=== PATIENT | female | born 1965 | race Hispanic/Latino ===

== ENCOUNTER 2017-05-20 13:16 | Inpatient (IN) | payer MEDICAID ==
[2017-05-16 09:18] VITALS: BMI 31.8
--- NOTE | 2017-05-20 13:56 | CP.SDSHP ---
Same Day Surgery H & P - History Proposed Procedure: Reverdin Bunionectomy, Tailor's Bunionectomy, HT 2, and 5 repair Pre-Op Diagnosis: HAV, Hammer 2 and 5, Tailor's bunion of the right foot - Allergies Allergies: Allergies azithromycin [From Zithromax Z-Ty] Allergy (Verified 10/08/16 08:51) RASH Penicillins Allergy (Verified 10/08/16 08:51) RASH - Physical Exam Mental Status: Alert & Oriented x3 Neuro: WNL Heart: WNL Lungs: WNL - {Optional Preform as Required} Ortho: Other - Impression Impression: Pt was seen and examined in SDS. Pt NPO status was confirmed. All Pre-op testing and clearance was in the chart. Pt has exhausted all conservative treatment at this time and is opting for surgical intervention. Pt was explained procedure and post-operative course. All pt's questions were answered to satisfaction. No guarantees were made. Pt understands all risks, benefits and complications of procedure. Pt will follow-up with Dr. Gallo - Date & Time Date: 05/20/17 Time: 13:57 Short Stay Discharge - Short Stay Discharge Admitting Diagnosis/Reason for Visit: M20.10 M20.41 M21.621 Disposition: TRANS TO OBS Referrals: FAMILY PROVIDER,NO [Primary Care Provider] - Additional Instructions (Diet, Activity): Patient in good/stable condition for discharge home. Pt to resume medications per medical reconciliation. Resume regular diet. Please keep dressing clean, dry, & intact to surgical site, use plastic bag over bandage for showering, wear post op shoe at all times when ambulating, call clinic if you see signs of infection (redness, swelling, malodor), please make an appointment to see Dr. Gallo in office/clinic within 1 week for post-op check. Progress Note/Discharge Note with Instructions: - Patient evaluated bedside in recovery s/p surgical procedure. - After surgical procedure patient in NAD - (+) Void, (+) Appetite - Capillary refill time <3s and NVSI intact. - Patient denies complaints at this time - Post operative instructions and plan of care explained to patient at length. - Pt. acknowledges understanding. - Patient stable for DC per podiatric surgery
--- NOTE | 2017-05-20 14:03 | CP.PCM.PN ---
Subjective - Date & Time of Evaluation Date of Evaluation: 05/20/17 Time of Evaluation: 13:57 - Subjective Subjective: 51 y/o female seen at bedside in [facility] with her for right foot surgery. Patient states that she had surgery on that foot couple of years ago but did not correct the issue. Patient states that she was in a lot of pain after the surgery. Patient states that her foot is not the same after that surgery and she still feels tingling and burning in that foot. Patient states that she has been NPO since midnight. Patient states that she feel nauseous from anesthesia but does not have any other adverse reaction. Patient denies of any other pedal complains at this time. PMHx: Hyperthyroidism PSHx: Right foot surgery, Hysterectomy, Breast augmentations Allergies: Azithromycin, Penicillins SHx: Admits of smoking, occasional EtOH, denies of any other illicit drug usage Objective - Vital Signs/Intake and Output Vital Signs (last 24 hours): Temp Pulse Resp BP Pulse Ox 97.4 F L 70 18 124/82 05/16/17 09:33 05/16/17 09:33 05/16/17 09:33 05/16/17 09:33 - Constitutional Appears: Well, Non-toxic, No Acute Distress - Extremities Exam Additional comments: Right LE focused exam: VASC: DP/PT pulses are palpable 2/4, Cap Refill time: < 3 sec to all digits, Temp gradient: warm to cool from proximal to distal, minimal non-pitting edema noted at the digits DERM: Surgical scar noted on the dorsum of the 1st ray from previous surgery, no open lesions, no erythema, no clinical suspicion of active infection NEURO: Protective sensation grossly intact ORTHO: minimal hallux abductovalgus noted on right foot with digits 2-4 hammer toes, 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 for 1). Hallux abductovalgus 2). Hammertoes 2-5 3). 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 Pt NPO status was confirmed All Pre-op testing and clearance was in the chart Pt has exhausted all conservative treatment at this time and is opting for surgical intervention Pt was explained procedure and post-operative course All pt's questions were answered to satisfaction No guarantees were made Pt understands all risks, benefits and complications of procedure Pt will follow-up with Dr. Gallo
[2017-05-20] MEDS ORDERED: Bupivacaine 0.5% Inj(30mL) IJ ONE ×3 (14:12→20:10)
[2017-05-20] MEDS ORDERED: Clindamycin 600 MG in Sodium Chloride 0.9% 100 ML IVPB ONE (14:12)
[2017-05-20] MEDS ORDERED: Lidocaine 1% Inj (20ml) IJ ONE ×3 (14:12→20:10)
[2017-05-20] MEDS ORDERED: Bupivacaine 0.5% Inj(30mL) ONE (15:06)
[2017-05-20] MEDS ORDERED: Lidocaine 1% Inj (20ml) ONE (15:06)
[2017-05-20] MEDS ORDERED: Midazolam 2 MG/2 ML VIAL ONE (15:26)
[2017-05-20] MEDS ORDERED: Propofol 10 mg/ml Inj (20 ML) ONE (15:26)
[2017-05-20] MEDS ORDERED: Dexamethasone 4 mg/1 ml ONE (16:14)
[2017-05-20] MEDS ORDERED: HYDROmorphone 0.5 mg/0.5 ml ISec IVP PRN (20:30)
[2017-05-20] MEDS ORDERED: Oxycodone/Acetaminophen 5/325 mg Tab PO PRN (20:33)
[2017-05-20] MEDS ORDERED: HYDROmorphone 0.5 mg/0.5 ml ISec ONE ×3 (20:35→21:07)
[2017-05-20] MEDS ORDERED: HYDROmorphone 0.5 mg/0.5 ml ISec IVP ONE ×3 (20:35→21:07)
--- NOTE | 2017-05-20 20:51 | PCM.SURG1 ---
Surgeon's Initial Post Op Note - Surgeon's Notes Surgeon: Dr. Gallo DPM Laboratory Operations Coordinator: Dr. Jaky Obrien PGY-2, Dr. Eleni Howard PGY-1 Type of Anesthesia: General LMA Anesthesia Administered By: Dr. Whitehead Pre-Operative Diagnosis: Right foot bunion, Hammer toe 2nd and 5th, abductovarus of the 5th digit, splaying of the 5th ray Operative Findings: See dictation. M: Arthrex T-plate 4 hole, 4.0 mm cancelous 24 mm, 3.0 cortical 14mm x 2, 3.0 cortical 20mm x 2, 4.0 cancellous 30 mm, Inbone 2 hole VLC gridlock plate, 2.4 x 12 mm NL screw x 2, DBM bone putty. I: 25 cc of 1:1 mixture of 1% lidocain plain: 0.5% Marcain plain Post-Operative Diagnosis: Same Operation Performed: Lapidus bunionectomy and Elvis osteotomy with screws and plate fixation, Hammertoe correction of 2nd and 5th digit of the right foot Specimen/Specimens Removed: none Estimated Blood Loss: EBL {In ML}: 100 Blood Products Given: N/A Drains Used: No Drains Post-Op Condition: Good Date of Surgery/Procedure: 05/20/17 Time of Surgery/Procedure: 20:30
--- NOTE | 2017-05-20 21:08 | CP.PCM.HP ---
History of Present Illness - History of Present Illness History of Present Illness: 51 y/o female with pmhx significant for hypothyroidism and asthma being admitted s/p Lapidus bunionectomy and Elvis osteotomy with screws and plate fixation, Hammertoe correction of 2nd and 5th digit of the right foot. Pt seen and examined while recovery at "[facility]"; did not have any complaints, pain was very well controlled. PMHx: Hypothyroidism PSHx: Right foot surgery, Hysterectomy, Breast augmentations Allergies: Azithromycin, Penicillins SHx: Admits of smoking, occasional EtOH, denies of any other illicit drug usage Present on Admission - Present on Admission Any Indicators Present on Admission: No Review of Systems - Review of Systems Review of Systems: Unable to obtain full ROS given pt sedated condition due to pain management Past Patient History - Infectious Disease Hx of Infectious Diseases: None - Past Medical History & Family History Past Medical History?: Yes - Past Social History Smoking Status: Current Some Days Smoker - CARDIAC Hx Cardiac Disorders: Yes Hx Hypercholesterolemia: Yes - PULMONARY Hx Respiratory Disorders: No Hx Asthma: Yes - NEUROLOGICAL Hx Neurological Disorder: No - HEENT Hx HEENT Problems: No - RENAL Hx Chronic Kidney Disease: No - ENDOCRINE/METABOLIC Hx Endocrine Disorders: Yes Hx Hypothyroidism: Yes - HEMATOLOGICAL/ONCOLOGICAL Hx Blood Disorders: No - INTEGUMENTARY Hx Dermatological Problems: No - MUSCULOSKELETAL/RHEUMATOLOGICAL Hx Musculoskeletal Disorders: No Hx Falls: No - GASTROINTESTINAL Hx Gastrointestinal Disorders: Yes Hx Gastroesophageal Reflux: Yes Other/Comment: HEARTBURN - GENITOURINARY/GYNECOLOGICAL Hx Genitourinary Disorders: No (BREAST AUGMENTATION,FIBROIDS) - PSYCHIATRIC Hx Psychophysiologic Disorder: Yes Hx Anxiety: Yes Hx Depression: No Hx Emotional Abuse: No Hx Physical Abuse: No Hx Substance Use: No - SURGICAL HISTORY Hx Surgeries: Yes (BREAST AUGMENTATION,BUNIONECTOMY) Hx Hysterectomy: Yes Hx Musculoskeletal Surgery: Yes (BUNIONECTOMY RIGHT OCT 2016) Hx Orthopedic Surgery: Yes (Right foot) Other/Comment: BREAST AUGMENTATION 16 YRS AGO - ANESTHESIA Hx Anesthesia: Yes Hx Anesthesia Reactions: No Hx Malignant Hyperthermia: No Has any member of the family had a problem w/ anesthesia?: No Meds Allergies/Adverse Reactions: Allergies Allergy/AdvReac Type Severity Reaction Status Date / Time azithromycin Allergy RASH Verified 10/08/16 08:51 [From Zithromax Z-Ty] Penicillins Allergy RASH Verified 10/08/16 08:51 Physical Exam - Constitutional Appears: Non-toxic, No Acute Distress, Other Additional comments: sedated - Head Exam Head Exam: NORMOCEPHALIC - Eye Exam Eye Exam: Normal appearance - ENT Exam ENT Exam: Mucous Membranes Moist - Respiratory Exam Respiratory Exam: Clear to Auscultation Bilateral, NORMAL BREATHING PATTERN. absent: Wheezes - Cardiovascular Exam Cardiovascular Exam: REGULAR RHYTHM, +S1, +S2 - GI/Abdominal Exam GI & Abdominal Exam: Normal Bowel Sounds, Soft. absent: Tenderness - Extremities Exam Additional comments: right lower extremity is neatly wrapped left LE: no calf tenderness, no edema - Neurological Exam Neurological exam: Oriented x3 Additional comments: easily aroused Results - Vital Signs Recent Vital Signs: Last Vital Signs Temp 99.2 F 05/20/17 20:45 Pulse 81 05/20/17 20:45 Resp 14 05/20/17 20:45 BP 146/94 H 05/20/17 20:45 Pulse Ox 98 05/20/17 20:45 Assessment & Plan - Assessment and Plan (Free Text) Assessment: 51 y/o female with history of hypothyroidism and asthma being admitted for observation s/p Lapidus bunionectomy and Elvis osteotomy with screws and plate fixation, Hammertoe correction of 2nd and 5th digit of the right foot POD#0 Plan: 1.Lapidus bunionectomy and Elvis osteotomy with screws and plate fixation, Hammertoe correction of 2nd and 5th digit of the right foot -clindamycin per surgeon -pain management per podiatry -PT eval ordered per podiatry -scd -incentive spirometry monitor for pain 2. Hypothyroidism -Pt has been off her Synthroid for 2 weeks,; will hold medication -pt to see her PCP about restarting medication 3. Asthma (moderate persistent) - Pt home medication ordered, not on formulary - Advair for overnight and AM -pt to resume home medication after discharge 4. Diet-regular 5. DVT prophylaxis- SCDs
[2017-05-20] MEDS: Clindamycin 600 MG in Sodium Chloride 0.9% 100 ML IVPB SCH (22:00)
[2017-05-21] MEDS: Oxycodone/Acetaminophen 5/325 mg Tab PO PRN ×3 (01:09→19:49)
[2017-05-21 05:47] LABS: HEMATOCRIT 36.3 % (34.0-47.0); MEAN CELL VOLUME 101.1 fl (81.0-99.0); MEAN CORPUSCULAR HEMOGLOBIN 33.8 pg (27.0-31.0); MEAN CORPUSCULAR HGB CONC 33.4 g/dL (33.0-37.0); RED CELL DISTRIBUTION WIDTH 13.4 % (11.5-14.5); WHITE BLOOD COUNT 9.6 K/uL (4.8-10.8)
[2017-05-21] MEDS: Fluticasone-Salmeterol 100-50mcg Diskus IH SCH ×2 (08:27→20:07)
[2017-05-21] MEDS: Clindamycin 600 MG in Sodium Chloride 0.9% 100 ML IVPB SCH ×2 (08:28→20:05)
[2017-05-21] MEDS: Sodium Chloride 0.9% 1,000 ML IV SCH ×2 (08:32→12:53)
--- NOTE | 2017-05-21 08:33 | CP.PCM.PN ---
Subjective - Date & Time of Evaluation Date of Evaluation: 05/21/17 Time of Evaluation: 07:00 - Subjective Subjective: Patient seen and examined in [facility] unit this morning. Patient c/o pain and electric shock sensation in his right lower extremity. Afebrile, but BP has been elevated most likely secondary to pain Objective - Vital Signs/Intake and Output Vital Signs (last 24 hours): Temp Pulse Resp BP Pulse Ox 98.9 F 80 20 126/75 98 05/21/17 07:50 05/21/17 07:50 05/21/17 07:50 05/21/17 07:50 05/21/17 07:50 Intake and Output: 05/21/17 05/21/17 06:59 18:59 Output Total 400 Balance -400 - Medications Medications: Current Medications Acetaminophen (Tylenol 325mg Tab) 650 mg PO Q4 PRN PRN Reason: Pain, Mild (1-3) Home Med (Fluticasone/Salmeterol [Fluticasone-Salmeterol 113-14]) 113 mcg PO DAILY [facility] Hydromorphone HCl (Dilaudid) 0.5 mg IVP Q5MIN PRN PRN Reason: Pain, severe (8-10) Sodium Chloride (Sodium Chloride 0.9%) 1,000 mls @ 140 mls/hr IV .Q7H9M [facility] Stop: 05/21/17 14:14 Last Admin: 05/21/17 08:32 Dose: 140 mls/hr Clindamycin Phosphate 600 mg/ (Sodium Chloride) 104 mls @ 104 mls/hr IVPB Q12 [facility] Last Admin: 05/21/17 08:28 Dose: 104 mls/hr Ondansetron HCl (Zofran Inj) 4 mg IVP Q4 PRN PRN Reason: Nausea/Vomiting Last Admin: 05/21/17 06:32 Dose: 4 mg Oxycodone/Acetaminophen (Percocet 5/325 Mg Tab) 1 tab PO Q4 PRN PRN Reason: Pain, moderate (4-7) Stop: 05/23/17 20:34 Oxycodone/Acetaminophen (Percocet 5/325 Mg Tab) 2 tab PO Q6 PRN PRN Reason: Pain, severe (8-10) Stop: 05/23/17 20:34 Last Admin: 05/21/17 01:09 Dose: 2 tab Fluticasone/Salmeterol (Advair Diskus 100/50) 1 puff IH Q12 [facility] Last Admin: 05/21/17 08:27 Dose: 1 puff - Labs Labs: 05/21/17 05:33 - ENT Exam ENT Exam: Mucous Membranes Moist - Respiratory Exam Respiratory Exam: Clear to Ausculation Bilateral, NORMAL BREATHING PATTERN - Cardiovascular Exam Cardiovascular Exam: REGULAR RHYTHM, +S1, +S2 - GI/Abdominal Exam GI & Abdominal Exam: Soft, Normal Bowel Sounds. absent: Distended, Guarding, Rigid - Extremities Exam Extremities Exam: absent: Calf Tenderness, Pedal Edema Additional comments: Patient's posterior splint is clean, dry and intact. Patient is able to move her digits in the splint with no discomfort or pain Cap refill time is < 3 sec to all digits - Neurological Exam Neurological Exam: Alert, Awake, Oriented x3 - Skin Skin Exam: Dry, Intact, Normal Color Assessment and Plan - Assessment and Plan (Free Text) Assessment: 51 y/o female with PMHx of hypothyroidism, now s/p Lapidus bunionectomy, Elvis, 2nd and 5th hammertoe correction of the right foot on POD#1. Plan: S/p Lapidus bunionectomy and Elvis osteotomy with screws and plate fixation, Hammertoe correction of 2nd and 5th digit of the right foot POD #1 Pain control: Morhine 2 mg IVP Q4 PRN for severe pain (8-10) Percocet 1 tab PO Q4 for moderate pain (5-7) Tylenol 650 mg Q4 PRN (1-3) PT/ OT eval Zofran 4 mg IV Q4 PRN start Gabapentin 100 mg PO TID c/w Clindamycin 600 mg IV Q12 as per surgeon c/w Incentive spirometry monitor for pain H/O Hypothyroidism asymptomatic at this time -Pt has been off her Synthroid for 2 weeks -TSH : 0.33, low, Free T4: 0.75 -pt to see her PCP about restarting medication Asthma possible mild persistent - Pt home medication ordered, not on formulary - c/w Advair Diskus 1 puff Q12 while in hospital, after DC she can resume her home med -Albuterol inh Q4 PRN for wheezing DVT prophylaxis- SCDs for now Consider Lovenox 40 SC , start 12 hours after surgery
[2017-05-21] MEDS ORDERED: FLUTICASONE PO SCH (09:00)
[2017-05-21] MEDS ORDERED: SALMETEROL PO SCH (09:00)
[2017-05-21] MEDS ORDERED: Albuterol 0.083% Inhal Sol (2.5 mg/3 mL) UD INH PRN (09:16)
[2017-05-21] MEDS ORDERED: diaZEpam 10 mg/2 ml Inj IVP ONE (10:03)
--- NOTE | 2017-05-21 10:53 | CP.PCM.PN ---
Subjective - Date & Time of Evaluation Date of Evaluation: 05/21/17 Time of Evaluation: 10:50 - Subjective Subjective: 51 y/o female seen at bedside 1 day s/p Lapidus bunionectomy, Elvis, 2nd and 5th hammertoe correction of the right foot. Patient is AAOx3. Patient states that she was unable to sleep overnight because of the pain. Patient states that she feels an electrical pain shooting up her thigh on the right side. Patient denies of any other pedal complains at this time. Patients dressing is clean, dry and intact. Patient denies of any F/N/V/C/SOB/CP today. Objective - Vital Signs/Intake and Output Vital Signs (last 24 hours): Temp Pulse Resp BP Pulse Ox 98.9 F 80 20 126/75 98 05/21/17 07:50 05/21/17 07:50 05/21/17 07:50 05/21/17 07:50 05/21/17 07:50 Intake and Output: 05/21/17 05/21/17 06:59 18:59 Output Total 400 Balance -400 - Medications Medications: Current Medications Acetaminophen (Tylenol 325mg Tab) 650 mg PO Q4 PRN PRN Reason: Pain, Mild (1-3) Albuterol Sulfate (Albuterol 0.083% Inhal Caroline (2.5 Mg/3 Ml) Ud) 2.5 mg INH RQ4 PRN PRN Reason: Shortness of Breath Home Med (Fluticasone/Salmeterol [Fluticasone-Salmeterol 113-14]) 113 mcg PO DAILY [facility] Sodium Chloride (Sodium Chloride 0.9%) 1,000 mls @ 140 mls/hr IV .Q7H9M [facility] Stop: 05/21/17 14:14 Last Admin: 05/21/17 08:32 Dose: 140 mls/hr Clindamycin Phosphate 600 mg/ (Sodium Chloride) 104 mls @ 104 mls/hr IVPB Q12 [facility] Last Admin: 05/21/17 08:28 Dose: 104 mls/hr Morphine Sulfate (Morphine) 2 mg IVP Q4 PRN PRN Reason: Pain, severe (8-10) Ondansetron HCl (Zofran Inj) 4 mg IVP Q4 PRN PRN Reason: Nausea/Vomiting Last Admin: 05/21/17 06:32 Dose: 4 mg Oxycodone/Acetaminophen (Percocet 5/325 Mg Tab) 1 tab PO Q4 PRN PRN Reason: Pain, moderate (4-7) Stop: 05/23/17 20:34 Fluticasone/Salmeterol (Advair Diskus 100/50) 1 puff IH Q12 [facility] Last Admin: 05/21/17 08:27 Dose: 1 puff - Labs Labs: 05/21/17 05:33 - Constitutional Appears: Well, Non-toxic, No Acute Distress - Extremities Exam Additional comments: Patient's posterior splint is clean, dry and intact. Patient is able to move her digits in the splint with no discomfort or pain Cap refill time is < 3 sec to all digits - Neurological Exam Neurological Exam: Alert, Awake, Oriented x3 - Psychiatric Exam Psychiatric exam: Normal Affect, Normal Mood Assessment and Plan - Assessment and Plan (Free Text) Assessment: 51 y/o female seen at bedside 1 day s/p Lapidus bunionectomy, Elvis, 2nd and 5th hammertoe correction of the right foot. Plan: Patient seen and evaluated at bedside Patient discussed with attending Dr. Gallo Patient is staying for overnight for observation and pain management Post-op x-rays ordered/reviewed Will change patient's posterior splint to a hard cast prior to her discharge tomorrow Patient will follow up with Dr. Gallo as an outpatient Patient demonstrated verbal understanding Podiatry to follow patient closely while in-house
--- NOTE | 2017-05-21 14:30 | RAD ---
PROCEDURE: Right Foot Radiographs. HISTORY: s/p right foot surgery COMPARISON: 05/20/2017. FINDINGS: BONES: Stable appearance of orthopedic hardware 1st cuneiform -1st metatarsal and proximal phalanx 1st digit. No evidence of orthopedic hardware failure. JOINTS: No significant interval change compared to the prior examination(s). SOFT TISSUES: Persistent soft tissue swelling. OTHER FINDINGS: None. IMPRESSION: Satisfactory postoperative status. Soft tissue swelling without acute articular or osseous abnormality.
[2017-05-21] MEDS ORDERED: Oxycodone/Acetaminophen 5/325 mg Tab PO PRN (15:28)
--- NOTE | 2017-05-21 16:28 | RAD ---
PROCEDURE: Right foot dated 05/21/2017 HISTORY: Right foot surgery. COMPARISON: Comparison made with prior study 05/20/2017 at 2023 hours. FINDINGS: BONES: Re- demonstrated are postoperative changes involving proximal 1st metatarsal and proximal phalanx 1st toe. Hardware intact. No evidence of loosening or infection. Note however that surrounding fiberglass cast obscures fine soft tissue and bone detail. Diffuse circumferential soft tissue swelling. Postoperative changes distal aspect proximal phalanx 2nd toe unchanged. . IMPRESSION: Stable postoperative changes as described. Diffuse circumferential soft tissue swelling
[2017-05-22 00:22] VITALS: RESP 20; TEMP 99.4; O2SAT 96
[2017-05-22] MEDS: Oxycodone/Acetaminophen 5/325 mg Tab PO PRN ×2 (02:04→06:52)
[2017-05-22 06:08] LABS: HEMATOCRIT 33.1 % (34.0-47.0); MEAN CELL VOLUME 101.6 fl (81.0-99.0); MEAN CORPUSCULAR HEMOGLOBIN 33.9 pg (27.0-31.0); MEAN CORPUSCULAR HGB CONC 33.4 g/dL (33.0-37.0); RED CELL DISTRIBUTION WIDTH 13.3 % (11.5-14.5); WHITE BLOOD COUNT 6.2 K/uL (4.8-10.8)
[2017-05-22 06:29] LABS: BLOOD UREA NITROGEN 8 mg/dl (7-17); CALCIUM 8.1 mg/dL (8.4-10.2); CARBON DIOXIDE 26 mmol/L (22-30); CHLORIDE 106 mmol/L (98-107); GFR AFRICAN-AMERICAN > 60; GLUCOSE,RANDOM 105 mg/dL (65-105); POTASSIUM 3.6 MMOL/L (3.6-5.0); SODIUM 138 mmol/l (132-148)
--- NOTE | 2017-05-22 06:44 | CP.PCM.PN ---
Subjective - Date & Time of Evaluation Date of Evaluation: 05/22/17 Time of Evaluation: 07:26 - Subjective Subjective: 51 y/o female seen at bedside 2 day s/p Lapidus bunionectomy, Elvis, 2nd and 5th hammertoe correction of the right foot. Patient is AAOx3 and is in NAD. Patient states that her pain is now well managed and states that was able to sleep last night. Patient denies of any acute overnight events. Patient denies of any F/N/V /C/SOB/CP today. Patient denies of any other pedal complains today. Patient states that she is aware that she will be going home today. Objective - Vital Signs/Intake and Output Vital Signs (last 24 hours): Temp Pulse Resp BP Pulse Ox 99.4 F 91 H 20 122/78 96 05/22/17 00:21 05/22/17 00:21 05/22/17 00:21 05/22/17 00:21 05/22/17 00:21 - Medications Medications: Current Medications Acetaminophen (Tylenol 325mg Tab) 650 mg PO Q4 PRN PRN Reason: Pain, Mild (1-3) Albuterol Sulfate (Albuterol 0.083% Inhal Caroline (2.5 Mg/3 Ml) Ud) 2.5 mg INH RQ4 PRN PRN Reason: Shortness of Breath Cyclobenzaprine HCl (Flexeril) 5 mg PO TID PRN PRN Reason: Muscle spasm Last Admin: 05/21/17 19:50 Dose: 5 mg Gabapentin (Neurontin) 100 mg PO TID [facility] Last Admin: 05/21/17 16:19 Dose: 100 mg Clindamycin Phosphate 600 mg/ (Sodium Chloride) 104 mls @ 104 mls/hr IVPB Q12 [facility] Last Admin: 05/21/17 20:05 Dose: 104 mls/hr Morphine Sulfate (Morphine) 4 mg IVP Q4 PRN PRN Reason: Pain, severe (8-10) Last Admin: 05/22/17 03:58 Dose: 4 mg Ondansetron HCl (Zofran Inj) 4 mg IVP Q4 PRN PRN Reason: Nausea/Vomiting Last Admin: 05/21/17 22:56 Dose: 4 mg Oxycodone/Acetaminophen (Percocet 5/325 Mg Tab) 1 tab PO Q4 PRN PRN Reason: Pain, moderate (4-7) Stop: 05/23/17 20:34 Last Admin: 05/22/17 02:04 Dose: 1 tab Fluticasone/Salmeterol (Advair Diskus 100/50) 1 puff IH Q12 [facility] Last Admin: 05/21/17 20:07 Dose: 1 puff - Labs Labs: 05/22/17 05:00 05/22/17 05:00 - Constitutional Appears: Well, Non-toxic, No Acute Distress - Extremities Exam Additional comments: Patient's posterior splint is clean, dry and intact. Patient is able to move her digits in the splint with no discomfort or pain Cap refill time is < 3 sec to all digits - Neurological Exam Neurological Exam: Alert, Awake, Oriented x3 - Psychiatric Exam Psychiatric exam: Normal Affect, Normal Mood Assessment and Plan - Assessment and Plan (Free Text) Assessment: 51 y/o female seen at bedside 2 days s/p Lapidus bunionectomy, Elvis, 2nd and 5th hammertoe correction of the right foot. Plan: Patient seen and evaluated at bedside Patient discussed with attending Dr. Gallo Post-op x-rays ordered/reviewed Patient is tolerating her pain well today and is stable from podiatry standpoint Will change patient's posterior splint to a hard cast prior to her discharge tomorrow Patient will follow up with Dr. Gallo as an outpatient Patient demonstrated verbal understanding Podiatry to follow patient closely while in-house
[2017-05-22 08:10] VITALS: BP 106/63; PULSE 80
[2017-05-22] MEDS: Clindamycin 600 MG in Sodium Chloride 0.9% 100 ML IVPB SCH (08:42)
[2017-05-22] MEDS: Fluticasone-Salmeterol 100-50mcg Diskus IH SCH (08:43)
--- NOTE | 2017-05-22 09:52 | CP.PCM.DIS ---
Provider - Provider Date of Admission: 05/21/17 11:00 Attending physician: Jennifer Saenz MD Hospital Course - Lab Results Lab Results: Most Recent Lab Values WBC 6.2 K/uL (4.8-10.8) 05/22/17 05:00 RBC 3.26 Mil/uL (3.80-5.20) L 05/22/17 05:00 Hgb 11.1 g/dL (12.0-16.0) L 05/22/17 05:00 Hct 33.1 % (34.0-47.0) L 05/22/17 05:00 MCV 101.6 fl (81.0-99.0) H 05/22/17 05:00 MCH 33.9 pg (27.0-31.0) H 05/22/17 05:00 MCHC 33.4 g/dL (33.0-37.0) 05/22/17 05:00 RDW 13.3 % (11.5-14.5) 05/22/17 05:00 Plt Count 144 K/uL (130-400) 05/22/17 05:00 Sodium 138 mmol/l (132-148) 05/22/17 05:00 Potassium 3.6 MMOL/L (3.6-5.0) 05/22/17 05:00 Chloride 106 mmol/L (98-107) 05/22/17 05:00 Carbon Dioxide 26 mmol/L (22-30) 05/22/17 05:00 Anion Gap 10 (10-20) 05/22/17 05:00 BUN 8 mg/dl (7-17) 05/22/17 05:00 Creatinine 0.8 mg/dL (0.7-1.2) 05/22/17 05:00 Est GFR ( Amer) > 60 05/22/17 05:00 Est GFR (Non-Af Amer) > 60 05/22/17 05:00 Random Glucose 105 mg/dL (65-105) 05/22/17 05:00 Calcium 8.1 mg/dL (8.4-10.2) L 05/22/17 05:00 Free T4 0.75 ng/dL (0.78-2.19) L 05/21/17 07:00 TSH 3rd Generation 0.33 mIU/ML (0.46-4.68) L 05/21/17 07:00 Discharge Exam - Head Exam Head Exam: NORMOCEPHALIC Discharge Plan - Follow Up Plan Condition: GOOD Disposition: HOME/ ROUTINE Additional Instructions: Patient in good/stable condition for discharge home. Pt to resume medications per medical reconciliation. Resume regular diet. Please keep dressing clean, dry, & intact to surgical site, use plastic bag over bandage for showering, wear post op shoe at all times when ambulating, call clinic if you see signs of infection (redness, swelling, malodor), please make an appointment to see Dr. Gallo in office/clinic within 1 week for post-op check. Referrals: FAMILY PROVIDER,NO [Family Provider] -
[2017-05-22] MEDS ORDERED: Enoxaparin 40 mg Syringe SC SCH (11:15)
--- NOTE | 2017-05-22 12:13 | CP.PCM.PN ---
Subjective - Date & Time of Evaluation Date of Evaluation: 05/22/17 Time of Evaluation: 07:25 - Subjective Subjective: Patient seen and examined in MedSurg unit. Patient still c/o pain at surgical wound level, radiating up to her right lower extremities. States pain is temporary relief with pain medications, and not able to tolerate. Passing gas Afebrile, VS stable Objective - Vital Signs/Intake and Output Vital Signs (last 24 hours): Temp Pulse Resp BP Pulse Ox 99.4 F 80 20 106/63 96 05/22/17 08:09 05/22/17 08:09 05/22/17 08:09 05/22/17 08:09 05/22/17 08:09 - Medications Medications: Current Medications Acetaminophen (Tylenol 325mg Tab) 650 mg PO Q4 PRN PRN Reason: Pain, Mild (1-3) Albuterol Sulfate (Albuterol 0.083% Inhal Caroline (2.5 Mg/3 Ml) Ud) 2.5 mg INH RQ4 PRN PRN Reason: Shortness of Breath Cyclobenzaprine HCl (Flexeril) 5 mg PO TID PRN PRN Reason: Muscle spasm Last Admin: 05/22/17 06:52 Dose: 5 mg Enoxaparin Sodium (Lovenox) 40 mg SC DAILY JEREL PRN Reason: Protocol Gabapentin (Neurontin) 100 mg PO TID [facility] Last Admin: 05/22/17 08:46 Dose: 100 mg Morphine Sulfate (Morphine) 2 mg IVP Q4 PRN PRN Reason: Pain, severe (8-10) Ondansetron HCl (Zofran Inj) 4 mg IVP Q4 PRN PRN Reason: Nausea/Vomiting Last Admin: 05/21/17 22:56 Dose: 4 mg Oxycodone/Acetaminophen (Percocet 5/325 Mg Tab) 1 tab PO Q4 PRN PRN Reason: Pain, moderate (4-7) Stop: 05/23/17 20:34 Last Admin: 05/22/17 06:52 Dose: 1 tab Fluticasone/Salmeterol (Advair Diskus 100/50) 1 puff IH Q12 [facility] Last Admin: 05/22/17 08:43 Dose: 1 puff - Labs Labs: 05/22/17 05:00 05/22/17 05:00 - Constitutional Appears: No Acute Distress - ENT Exam ENT Exam: Mucous Membranes Moist - Respiratory Exam Respiratory Exam: Clear to Ausculation Bilateral, NORMAL BREATHING PATTERN. absent: Rales, Rhonchi, Wheezes - Cardiovascular Exam Cardiovascular Exam: REGULAR RHYTHM, +S1, +S2 - GI/Abdominal Exam GI & Abdominal Exam: Soft, Normal Bowel Sounds. absent: Distended, Guarding, Rigid, Tenderness - Extremities Exam Extremities Exam: Normal Inspection. absent: Calf Tenderness, Pedal Edema - Neurological Exam Neurological Exam: Alert, Awake, Oriented x3 - Additional Findings Additional findings: Patient's posterior splint is clean, dry and intact. Patient is able to move her digits in the splint with no discomfort or pain Cap refill time is < 3 sec to all digits Assessment and Plan - Assessment and Plan (Free Text) Assessment: 51 y/o female with PMHx of hypothyroidism, now s/p Lapidus bunionectomy, Elvis, 2nd and 5th hammertoe correction of the right foot on POD#2. Plan: S/p Lapidus bunionectomy and Elvis osteotomy with screws and plate fixation, Hammertoe correction of 2nd and 5th digit of the right foot POD #2 pain better controlled today Percocet 1 tab PO Q4 for moderate pain (5-7) Tylenol 650 mg Q4 PRN (1-3) PT/ OT eval Zofran 4 mg IV Q4 PRN c/w Gabapentin 100 mg PO TID dc Clindamycin as per surgeon, c/w Incentive spirometry monitor for pain H/O Hypothyroidism asymptomatic at this time -Pt has been off her Synthroid for 2 weeks -TSH : 0.33, low, Free T4: 0.75 -pt to see her PCP about restarting medication Asthma possible mild persistent - Pt home medication ordered, not on formulary - c/w Advair Diskus 1 puff Q12 while in hospital, after DC she can resume her home med -Albuterol inh Q4 PRN for wheezing DVT prophylaxis- SCDs Lovenox 40 SC
--- NOTE | 2017-05-22 19:50 | CP.PCM.DIS ---
Provider - Provider Date of Admission: 05/21/17 11:00 Attending physician: Jennifer Saenz MD Consults: Podiatry Time Spent in preparation of Discharge (in minutes): 30 Diagnosis - Discharge Diagnosis (1) Status post surgery Status: Acute Comment: S/p Lapidus bunionectomy and Elvis osteotomy with screws and plate fixation, Hammertoe correction of 2nd and 5th digit of the right foot POD #2. F/ u with Podiatry and PMD. (2) History of asthma Status: Chronic Comment: possible mild persistent Hospital Course - Lab Results Lab Results: Most Recent Lab Values WBC 6.2 K/uL (4.8-10.8) 05/22/17 05:00 RBC 3.26 Mil/uL (3.80-5.20) L 05/22/17 05:00 Hgb 11.1 g/dL (12.0-16.0) L 05/22/17 05:00 Hct 33.1 % (34.0-47.0) L 05/22/17 05:00 MCV 101.6 fl (81.0-99.0) H 05/22/17 05:00 MCH 33.9 pg (27.0-31.0) H 05/22/17 05:00 MCHC 33.4 g/dL (33.0-37.0) 05/22/17 05:00 RDW 13.3 % (11.5-14.5) 05/22/17 05:00 Plt Count 144 K/uL (130-400) 05/22/17 05:00 Sodium 138 mmol/l (132-148) 05/22/17 05:00 Potassium 3.6 MMOL/L (3.6-5.0) 05/22/17 05:00 Chloride 106 mmol/L (98-107) 05/22/17 05:00 Carbon Dioxide 26 mmol/L (22-30) 05/22/17 05:00 Anion Gap 10 (10-20) 05/22/17 05:00 BUN 8 mg/dl (7-17) 05/22/17 05:00 Creatinine 0.8 mg/dL (0.7-1.2) 05/22/17 05:00 Est GFR ( Amer) > 60 05/22/17 05:00 Est GFR (Non-Af Amer) > 60 05/22/17 05:00 Random Glucose 105 mg/dL (65-105) 05/22/17 05:00 Calcium 8.1 mg/dL (8.4-10.2) L 05/22/17 05:00 Free T4 0.75 ng/dL (0.78-2.19) L 05/21/17 07:00 TSH 3rd Generation 0.33 mIU/ML (0.46-4.68) L 05/21/17 07:00 Urine Opiates Screen Positive (NEGATIVE) H 05/22/17 15:00 Urine Methadone Screen Negative (NEGATIVE) 05/22/17 15:00 Ur Barbiturates Screen Negative (NEGATIVE) 05/22/17 15:00 Ur Phencyclidine Scrn Negative (NEGATIVE) 05/22/17 15:00 Ur Amphetamines Screen Negative (NEGATIVE) 05/22/17 15:00 U Benzodiazepines Scrn Positive (NEGATIVE) 05/22/17 15:00 U Oth Cocaine Metabols Negative (NEGATIVE) 05/22/17 15:00 U Cannabinoids Screen Negative (NEGATIVE) 05/22/17 15:00 - Hospital Course Hospital Course: 51 y/o female with PMHx of hypothyroidism, now s/p Lapidus bunionectomy, Elvis, 2nd and 5th hammertoe correction of the right foot on POD#2. Patient is tolerating her pain well today and is cleared from podiatry standpoint to be discharged home today and will follow up with Dr. Gallo as an outpatient.Afebrile and no leukocytosis on admission. BP was elevated after surgery, and with pain control was normalized. Patient stable to be discharged today on PO medications and Eliquis prescribed by Podiatry surgical team. We also recommended f/u with PMD in 1 week. - Date & Time of H&P Date of H&P: 05/20/17 Time of H&P: 21:05 Discharge Exam - Head Exam Head Exam: NORMOCEPHALIC - Eye Exam Eye Exam: Normal appearance - ENT Exam ENT Exam: Mucous Membranes Moist - Respiratory Exam Respiratory Exam: Clear to PA & Lateral, NORMAL BREATHING PATTERN. absent: Rales, Rhonchi, Wheezes, Respiratory Distress - Cardiovascular Exam Cardiovascular Exam: REGULAR RHYTHM, +S1, +S2 - GI/Abdominal Exam GI & Abdominal Exam: Normal Bowel Sounds, Soft. absent: Distended, Guarding, Rigid, Tenderness - Extremities Exam Additional comments: Patient's posterior splint is clean, dry and intact. Patient is able to move her digits in the splint with no discomfort or pain Cap refill time is < 3 sec to all digits - Neurological Exam Neurological exam: Alert, Oriented x3 Discharge Plan - Discharge Medications Prescriptions: Apixaban [Eliquis] 2.5 mg PO BID #24 tab Cyclobenzaprine [Flexeril] 5 mg PO TID PRN #21 tab PRN Reason: Muscle Spasm Gabapentin [Neurontin] 100 mg PO TID #21 cap Ibuprofen [Motrin Tab] 800 mg PO TID #30 tab oxyCODONE/Acetaminophen [Percocet 5/325 mg Tab] 1 ea PO Q8 PRN #15 tab PRN Reason: Pain, Moderate (4-7) - Follow Up Plan Condition: GOOD Disposition: HOME/ ROUTINE Instructions: Bunionectomy (DC) Additional Instructions: Patient in good/stable condition for discharge home. Pt to resume medications per medical reconciliation. Resume regular diet. Please keep dressing clean, dry, & intact to surgical site, use plastic bag over bandage for showering, wear post op shoe at all times when ambulating, call clinic if you see signs of infection (redness, swelling, malodor), please make an appointment to see Dr. Gallo in office/clinic within 1 week for post-op check. Referrals: [facility] [Outside] Loy Gallo DPM [Staff Provider] - FAMILY PROVIDER,ANNY [Family Provider] -
== END 2017-05-22 14:40 | disposition home or self-care (01) | DRG 225 ==
LOC: H.OPSURG 13:16 → INTOOBSV 20:58 → H.MEDSURG1 20:58 → OBSVTOIN 05-21 11:00
PROVIDERS: ADMIT Family Medicine Geriatric Medicine; ATTEND Family Medicine Geriatric Medicine
PROC: 0SQP0ZZ Repair Right Toe Phalangeal Joint, Open Approach (ICD-10-PCS; 2017-05-20)
PROC: 0SQP0ZZ Repair Right Toe Phalangeal Joint, Open Approach (ICD-10-PCS; 2017-05-20)
PROC: 0QSQ04Z Reposition Right Toe Phalanx with Internal Fixation Device, Open Approach (ICD-10-PCS; principal; 2017-05-20 15:00)
PROC: 0QBQ0ZZ Excision of Right Toe Phalanx, Open Approach (ICD-10-PCS; 2017-05-20 15:00)
DX: M20.40 Other hammer toe(s) (acquired), unspecified foot (principal); E03.9 Hypothyroidism, unspecified; M21.611 Bunion of right foot; M21.621 Bunionette of right foot; M21.10 Varus deformity, not elsewhere classified, unspecified site; J45.909 Unspecified asthma, uncomplicated; K21.9 Gastro-esophageal reflux disease without esophagitis; E78.00 Pure hypercholesterolemia, unspecified; F17.200 Nicotine dependence, unspecified, uncomplicated; Z90.710 Acquired absence of both cervix and uterus

== ENCOUNTER 2017-12-02 12:59 | Day surgery (SDC) | payer MEDICAID ==
[2017-11-28 10:35] VITALS: BMI 30.8
[2017-12-02 13:27] VITALS: RESP 18
[2017-12-02] MEDS ORDERED: Lidocaine 1% Inj (20ml) IJ ONE ×2 (14:34→16:20)
[2017-12-02] MEDS ORDERED: Bupivacaine 0.5% Inj(30mL) IJ ONE (14:34)
--- NOTE | 2017-12-02 14:34 | CP.SDSHP ---
Same Day Surgery H & P - History Proposed Procedure: right foot radiofrequency nerve ablation Pre-Op Diagnosis: right foot neuritis - Previous Medical/Surgical History Cardiac: Hypertension Pain: 4.Moderate Pain Previous Surgical History: right foot Lapidus bunionectomy - Allergies Allergies: Allergies azithromycin [From Zithromax Z-Ty] Allergy (Verified 10/14/17 13:32) RASH Penicillins Allergy (Verified 10/14/17 13:32) RASH - Physical Exam General Appearance: well nourished, NAD Vital Signs: Vital Signs 12/02/17 13:25 Temperature 98.3 F Pulse Rate 99 H Respiratory 18 Rate Blood Pressure 146/91 H O2 Sat by Pulse 99 Oximetry Mental Status: Alert & Oriented x3 - {Optional Preform as Required} Integument: Other (surgical scar 8cm in length noted to dorsomedial R foot) Ortho: Other (tenderness to palpation of 1st met cuneiform fusion site) - Impression Impression: Pt was seen and examined in SDS. Pt NPO status was confirmed. All pre-op testing and clearance in chart. Pt has exhausted all conservative treatment at this time and is opting for surgical intervention. Pt was explained procedure and post-operative course. All pt's questions were answered to satisfaction. No guarantees were made. Pt understands all risks, benefits and complications of procedure. Pt will follow-up with Dr. Gallo within 1 week of surgery - Date & Time Date: 12/02/17 Time: 14:45 Short Stay Discharge - Short Stay Discharge Admitting Diagnosis/Reason for Visit: G57.71 Disposition: HOME/ ROUTINE Referrals: Kateryna Silverio, FOREIGN CORRESPONDENT [Primary Care Provider] - Additional Instructions (Diet, Activity): -Patient in good/stable condition for discharge home -Pt to resume medications per medical reconciliation -Resume regular diet Please keep dressing clean, dry, & intact to surgical site -Use plastic bag over bandage for showering -Wear post op shoe at all times when ambulating -Call clinic if you see signs of infection (redness, swelling, malodor) -Please make an appointment to see Dr. Gallo in office/clinic within 1 week for post-op check Progress Note/Discharge Note with Instructions: - Patient evaluated bedside in recovery s/p surgical procedure. - After surgical procedure patient in NAD - (+) Void, (+) Appetite - Capillary refill time <3s and NVSI intact. - Patient denies complaints at this time - Post operative instructions and plan of care explained to patient at length. - Pt. acknowledges understanding. - Patient stable for DC per podiatric surgery
--- NOTE | 2017-12-02 14:34 | CP.PCM.PN ---
Subjective - Date & Time of Evaluation Date of Evaluation: 12/02/17 Time of Evaluation: 14:33 - Subjective Subjective: 52 y/o female with PMHx of HTN and anxiety seen in SDS prior to right foot surgery. Pt confirms NPO status today. States she has been having increased right foot pain since Friday when she stepped on her foot in a weird way and heard a crack near where her plates and screws are. Also admits to constant nerve pain near the big toe. Denies F/C/N/V/CP/SOB Objective - Vital Signs/Intake and Output Vital Signs (last 24 hours): Temp Pulse Resp BP Pulse Ox 98.3 F 99 H 18 146/91 H 99 12/02/17 13:25 12/02/17 13:25 12/02/17 13:25 12/02/17 13:25 12/02/17 13:25 Intake and Output: 12/02/17 12/02/17 06:59 18:59 Intake Total 0 Balance 0 - Constitutional Appears: Well, Non-toxic, No Acute Distress - Extremities Exam Additional comments: 8cm surgical scar noted to dorsomedial right foot mild tenderness to palpation of 1st met-cuneiform fusion site - Neurological Exam Neurological Exam: Alert, Awake, Oriented x3 - Psychiatric Exam Psychiatric exam: Normal Affect, Normal Mood Assessment and Plan - Assessment and Plan (Free Text) Assessment: 52 y/o female with right foot neuritis and painful hardware to go to OR with Dr. Gallo for radiofrequency nerve ablation and removal of hardware Plan: Pt was seen and examined in SDS Pt NPO status was confirmed All pre-op testing and clearance in chart Pt has exhausted all conservative treatment at this time and is opting for surgical intervention Pt was explained procedure and post-operative course All pt's questions were answered to satisfaction No guarantees were made Pt understands all risks, benefits and complications of procedure Pt will follow-up with Dr. Gallo within 1 week of surgery
[2017-12-02] MEDS ORDERED: Clindamycin 600mg/50ml NS 600 MG/50 ML BAG IVPB ONE ×2 (14:36→14:51)
[2017-12-02] MEDS ORDERED: Propofol 10 mg/ml Inj (20 ML) ONE ×3 (14:47→16:02)
[2017-12-02] MEDS ORDERED: Lidocaine Hydrochloride 1% 20 ML ONE (14:49)
[2017-12-02] MEDS ORDERED: Bupivacaine 0.5% Inj(30mL) ONE (14:49)
[2017-12-02] MEDS ORDERED: Ropivacaine 0.5% 30ML IV ONE (15:03)
[2017-12-02] MEDS ORDERED: Midazolam 2 MG/2 ML VIAL ONE (15:13)
[2017-12-02] MEDS ORDERED: Sevoflurane - Inhalation Anesthetic Liq (250 ml) ONE (15:34)
[2017-12-02] MEDS ORDERED: Bupivacaine 0.5% 50 ML IJ ONE (16:20)
--- NOTE | 2017-12-02 16:38 | PCM.SURG1 ---
Surgeon's Initial Post Op Note - Surgeon's Notes Surgeon: Dr. Gallo General Merchandise Manager: Dr. Houston Huston PGY-1, Romeo Abdalla PGY-1, Lionel Moctezuma PGY-1 Type of Anesthesia: Block Regional, IV Sedation, Local Anesthesia Administered By: Dr. Huber Pre-Operative Diagnosis: right foot neuritis, right foot painful hardware Operative Findings: see operative report. I: 10cc 1:1 mix 1% Lidocaine plain and 0.5% Marcaine plain. M: 3-0 Vicryl, 4-0 Prolene. Tourniquet time 31 min at 250mmHg Post-Operative Diagnosis: same Operation Performed: right foot radiofrequency nerve ablation, right foot removal of hardware Specimen/Specimens Removed: Arthrex fully threaded screw Estimated Blood Loss: EBL {In ML}: 2 Blood Products Given: N/A Drains Used: No Drains Post-Op Condition: Good Date of Surgery/Procedure: 12/02/17 Time of Surgery/Procedure: 15:50
[2017-12-02] MEDS ORDERED: Oxycodone/Acetaminophen 5/325 mg Tab PO PRN ×2 (16:42)
[2017-12-02] MEDS ORDERED: Lactated Ringer's 1,000 ML IV SCH (16:45)
[2017-12-02] MEDS: Morphine 4 MG/ML VIAL IVP PRN ×2 (17:00→17:15)
--- NOTE | 2017-12-02 17:12 | PCM.ANESB2 ---
Popliteal Nerve Block - Popliteal Nerve Block Date of Procedure: 12/02/17 Anesthesiologist: Mayo Pre-Procedure Diagnosis: Peroneal nerve ablation Post-Procedure Diagnosis: Same Procedure Performed: Popliteal Nerve Block Right - Procedure Popliteal Nerve Block: This procedure was explained to the patient that it is for post-operative pain management. Consent was obtained after a thorough discussion with the patient regarding the benefits and possible complications of local anesthetic block of the sciatic nerve at the popliteal level. The patient was brought to the operating room and standard monitors are applied. Time-out was held with the circulating nurse to confirm the correct surgery and the appropriate block. Under general anesthesia, patient's operative leg was gently raised and supported and the groove in between the biceps femoris and vastus lateralis muscles was carefully palpated. The skin approximately 8cm above the popliteal crease was then marked. The ultrasound transducer was then applied to the posterior thigh approximately 8cm above the popliteal crease in the transverse plane and the sciatic nerve before its division was visualized lateral to the popliteal artery and in between the bicep femoris and semimembranosus/ semitendinosus muscles. After identification, the lateral portion of the thigh was prepped with Chloraprep At this point, a # 21 gauge Stimuplex insulated 4 inch needle was inserted into pre-marked area and advanced in a perpendicular direction. The needle was inserted above the ultrasound transducer in-plane towards the sciatic nerve in a [id number] direction. Needle advancement was performed carefully under direct ultrasound visualization. Nerve stimulator was used and dorsiflexion of the _right____ foot was elicited at a current of ___0.4__ MA. After repeated negative aspiration, __2___cc of __0.5___ % bupivicaine was injected and this was flowed with _23 cc of __0.5____% _bupivicaine ___. Under ultrasound guidance the local anesthetics were observed surrounding sciatic nerve . The needle was removed intact and sterile dressing was applied. The patient tolerated the popliteal nerve block well with stable vital signs and was prepared for emergence.
[2017-12-02] MEDS ORDERED: Oxycodone/Acetaminophen 5/325 mg Tab PO ONE (18:40)
[2017-12-02 19:21] VITALS: BP 138/70; PULSE 88; TEMP 98; O2SAT 97
--- NOTE | 2017-12-03 11:34 | CARD ---
APPROVED REPORT EKG Measurement Heart [id number] <Conclusion> Normal sinus rhythm Normal ECG
--- NOTE | 2017-12-04 02:54 | OP ---
PROCEDURE DATE: 12/02/2017 PREOPERATIVE DIAGNOSES: Right foot neuritis and right foot painful hardware. POSTOPERATIVE DIAGNOSES: Right foot neuritis and right foot painful hardware. NAME OF THE PROCEDURE: 1. Radiofrequency ablation of distal branch of the deep peroneal nerve and medial dorsal cutaneous nerve. 2. Removal of painful hardware. SURGEON: Loy Vences DPM ASSISTANTS: 1. Houston Huston DPM, PGY-1 2. Romeo Abdalla DPM, PGY-1. 3. Harriet Moctezuma DPM, PGY-1 TYPE OF ANESTHESIA: IV sedation with local. ANESTHESIA ADMINISTERED BY: Ramy Huber MD INDICATIONS: The patient is a 52-year-old female with the above diagnosis. The patient has exhausted all conservative treatment at this time and now requires surgical intervention. The patient signed the consent after careful explanation of risks, benefits, complications, and alternatives for surgical procedure. No guarantees were given nor implied. N.p.o. status was confirmed prior to taking the patient to the operating room. PREPARATION: The patient was brought into the operating room and was placed on the operating room table in the supine position. Time-out was performed for identification of the correct patient and the procedure. The right lower extremity was then prepped and draped in normal sterile manner and the procedure begun. The ankle tourniquet was applied to the right lower extremity and was not inflated until after completing the nerve ablation procedure prior to starting the removal of hardware procedure. PROCEDURE #1: Radiofrequency ablation of the distal branch of the deep peroneal nerve and the medial dorsal cutaneous nerve. A 22-gauge insulated radiofrequency needle was inserted at the distal proximal to the first interspace/between first and second metatarsal head. At this time, a radiofrequency and electrode was inserted into the radiofrequency needle. The power on the radiofrequency was then gradually increased to the motor stimulation mode. At this time, the motor stimulation study was 3.2 volts. At this time, the power was turned on and the unit was increased to the level of 3.2 volts and the foot was monitored for signs of fasciculation of digit/hallux. Once assured that the branch of the nerve identified was not a motor nerve, a radiofrequency unit was set to lesioning mode and lesioning of the distal branch of the deep peroneal nerve was performed at 90 degrees Celsius for 60 seconds. This procedure was repeated for complete treatment of the deep peroneal nerve. Next, a 22 gauge insulated radiofrequency needle was inserted on the medial aspect of the forefoot at the level of the first metatarsal shaft and the first metatarsal head. The same procedure was repeated for the medial dorsal cutaneous nerve. Care was taken and motor nerve assessment was performed one more time prior to repeating the steps for the medial dorsal cutaneous nerve. PROCEDURE #2: Removal of painful hardware. Attention was drawn to the dorsal aspect of the right forefoot at the level of the metatarsal cuneiform joint. At this time, a C-arm and a Melcher [place] was utilized to find the first metatarsal cuneiform joint. Home-run screw crossing the metatarsal cuneiform joint was identified with Melcher [place] under mini C-arm image. Marking pen was used at this time to plan out the incision superior to the hardware. A #15 blade was utilized to create an incision over the planned site. The incision was deepened through the subcutaneous layer after care being taken to identify the anatomical structures. Head of the home-run screw was then seen at the surgical site using the hemostat, the home-run screw was removed from the metatarsal cuneiform joint. Surgical site was irrigated with copious amount of saline at this time, 3-0 Vicryl was utilized to reapproximate the deep fascia layer as well as subcutaneous layer. The skin was reapproximated and brought back together using a 4-0 Prolene 10 mL of 1:1 mixture of 1% lidocaine plain and 0.5% Marcaine plain was injected around the saphenous nerve. Surgical site was dressed with Xeroform, DSD, Kerlix, and light Coban. POSTOPERATIVE CONDITION: The patient tolerated the anesthesia and the procedure well and was escorted to the recovery room with neurovascular status intact to the right foot. Ankle tourniquet was deflated at 31 minutes. The patient received a popliteal nerve block prior to returning to the PACU. The patient is to be full weightbearing in a surgical shoe. The patient will be followed up at Dr. Vences's office for further care. Houston Huston DPM Loy Vences DPM
== END 2017-12-02 19:37 | disposition home or self-care (01) ==
LOC: H.OPSURG 12:59
PROVIDERS: ATTEND Podiatrist Foot & Ankle Surgery
DX: G57.71 Causalgia of right lower limb (principal); J45.909 Unspecified asthma, uncomplicated; E78.5 Hyperlipidemia, unspecified; I10 Essential (primary) hypertension; E03.9 Hypothyroidism, unspecified; F41.9 Anxiety disorder, unspecified; K21.9 Gastro-esophageal reflux disease without esophagitis; T84.84XA Pain due to internal orthopedic prosthetic devices, implants and grafts, initial encounter; Z88.0 Allergy status to penicillin; Z87.891 Personal history of nicotine dependence
CPT/HCPCS: 20680; 64640; 88304; 93005; J0360; J2001; J2250; J2270; J2704; J3010; J7030; J7120